=== PATIENT | female | born 1955 | race Caucasian/White ===

== ENCOUNTER 2017-10-18 05:15 | Day surgery (SDC) | payer BC ==
[2017-10-17 15:25] LABS: HEMATOCRIT 39.3 % (36.0-48.0); HEMOGLOBIN 12.7 g/dL (12-16); MCH 32.2 pg (26.0-34.0); MCHC 32.3 g/dL (31.0-37.0); MCV 99.5 fL (80.0-100.0); MEAN PLATELET VOLUME 10.3 fL (7.4-10.4); RBC 3.95 10x6/uL (4.00-5.40); RDW 13.8 % (11.5-14.5); WBC 9.5 10x3/uL (4.8-10.8)
[2017-10-17 15:51] LABS: CALC OSMOLALITY 281 mosm/kg (275-300); CHLORIDE - SERUM 106 mmol/L (98-107); CREATININE - SERUM 0.8 mg/dL (0.6-1.3); POTASSIUM - SERUM 3.5 mmol/L (3.5-5.1); SODIUM 143 mmol/L (136-145); UREA NITROGEN 9 mg/dL (7-18); eGFR NON AFRICAN AMERICAN 77 mL/min (90-120)
[2017-10-17 16:01] LABS: GLUCOSE 70 mg/dL (74-106)
[~2017-10-18] VITALS: Ht 157.5 cm; Wt 73.5 kg
--- NOTE | ~2017-10-18 | OP ---
PATIENT NAME: HARRIETT GRAFF MEDICAL RECORD: [id number] :53 LOCATION:D[facility] ADMISSION DATE: SURGEON: ERICK FREEMAN DATE OF OPERATION: 10/18/2017 DATE OF OPERATION: 10/18/2017 SURGEON: Erick Freeman DPM PREOPERATIVE DIAGNOSIS: Plantar fasciitis, right foot. POSTOPERATIVE DIAGNOSIS: Plantar fasciitis, right foot. PROCEDURE: Open plantar fasciotomy, right foot. ANESTHESIA: General. HEMOSTASIS: Pneumatic ankle tourniquet inflated to 250 mmHg. ESTIMATED BLOOD LOSS: Minimal. MATERIALS: A 3-0 Vicryl and 4-0 Prolene. INJECTABLES: A 10 cc 0.5% bupivacaine plain. INDICATION FOR PROCEDURE: The patient has a longstanding history of pain associated with plantar fasciitis of the right foot. She has tried conservative modalities to no avail. She is here today for surgical correction of this chronically painful condition. We again reviewed the procedure, all risks and benefits were discussed. Complications were reviewed. All questions were answered. She was appropriately consented for the above-mentioned procedure. DESCRIPTION OF PROCEDURE: The patient was brought in the operating room and placed on the operating table in supine position. A timeout was called with Dr. Freeman, who identified the patient, the surgical site, and the surgery to be performed. Once appropriate anesthesia was obtained, the foot was prepped and draped in the usual aseptic manner. The pneumatic ankle tourniquet was inflated to 250 mmHg on the well-padded right ankle. Attention was directed to the plantar medial aspect of the right foot where a 3-cm linear incision was made. This incision was carried deep through soft tissue with care being taken to retract all vital neurovascular structures. All bleeders were cauterized along the way. The plantar fascia was then visualized through the incision and the medial one-half of it was sharply transected with a 15 blade. The surgical site was then investigated for any remaining tight plantar fascial bands and none were noted. The surgical site was then irrigated with copious amounts of normal sterile saline via bulb syringe. The surgical site was then reinvestigated for any remaining tight plantar fascial bands and none were noted. The subQ structures were then reapproximated and coapted using 3-0 Vicryl. The skin was then reapproximated and coapted using 4-0 nylon. A dressing consisting of Xeroform, 4 x 4's, Kerlix, and Coban was applied to the right foot. Pneumatic ankle tourniquet was deflated and cap refill time is immediate to all digits of the right foot. OPERATIVE REPORT [id number] HARRIETT GRAFF The patient tolerated the procedure and anesthesia well. She left the operating room with vital signs stable and capillary refill time intact. The patient will be discharged home with instructions to ice and elevate the foot. She was dispensed a boot to further help offload the foot. We will follow up with her next week and there were no complications with this procedure. TRANSINT:[id number] Voice Confirmation ID: [id number] DOCUMENT ID: [id number] ERICK FREEMAN at 1450 CC: [id number] DICTATION DATE: 10/18/17 1603 RN RECOVERY: 10/18/17 1641 [facility] 10/18/17 [id number] [place] [address]
[~2017-10-18 05:15] MED LIST: ESTRACE1 MG PO; LISINOPRIL10 MG PO; PROTONIX20 MG; SIMVASTATIN PO
[2017-10-18 13:09] VITALS: BP 138/67; Ht 157.5 cm; Wt 73.5 kg
== END 2017-10-18 17:30 | disposition home or self-care (01) ==
LOC: D.OPS 05:15 → D.PAN 13:45 → D.OPS 17:30
PROVIDERS: Anesthesiology
DX: M72.2 Plantar fascial fibromatosis (principal); Z01.812 Encounter for preprocedural laboratory examination